=== PATIENT | male | born 1995 | race Caucasian/White ===

== ENCOUNTER 2021-04-14 00:19 | Emergency (ER) | payer MEDICAID, SELFPAY ==
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
[2021-04-14 00:33] VITALS: BP 142/88; PULSE 115; RESP 20; TEMP 37.3; O2SAT 99
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
[2021-04-14 00:44] VITALS: BMI 22.1
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
--- NOTE | 2021-04-14 00:48 | PC.NURSE ---
charissa on phone with @ this time
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
[2021-04-14 01:00] VITALS: BP 133/73; PULSE 95; RESP 19; O2SAT 96
[2021-04-14 01:00] LABS: Basophils # 0.1 K/mm3 (0-0.2); Basophils % 0.5 % (0.1-2.0); Chloride 106 mmol/L (98-107); Eosinophils # 0.1 K/mm3 (0.0-0.4); Eosinophils % 0.5 % (0.1-12.0); Hemoglobin 16.7 g/dL (14.1-18.0); Lymphocytes # 3.1 K/mm3 (0.7-4.5); Mean Corpuscular Hemoglobin 31.1 pg (27.0-31.2); Mean Corpuscular Volume 91.5 fl (80-94); Mean Platelet Volume 8.2 fl (7.4-10.4); Monocytes % 6.4 % (1.7-9.3); Neutrophils # 11.2 K/mm3 (1.8-7.8); Neutrophils % 72.6 % (37.0-80.0); Platelet Count 192 K/mm3 (142-424); Red Blood Count 5.36 M/mm3 (4.60-6.20); Red Cell Distribution Width 13.5 % (11.5-17.5); Sodium 145 mmol/L (136-145); White Blood Count 15.4 K/mm3 (4.8-10.8)
[2021-04-14 01:01] LABS: Potassium 3.7 mmoL/L (3.5-5.1)
[2021-04-14 01:03] LABS: Alanine Aminotransferase 24 U/L (12-78); Albumin/Globulin Ratio 1.6 (1.1-1.8); Alkaline Phosphatase 80 U/L (38-126); Anion Gap 15.7 mEq/L (5-15); Aspartate Amino Transferase 53 U/L (17-59); Bilirubin,Total 0.5 mg/dl (0.2-1.3); Blood Urea Nitrogen 13 mg/dl (9-20); Calcium 9.2 mg/dl (8.4-10.2); Carbon Dioxide 27 mmol/L (22.0-30.0); Creatinine Clearance Estimated 102 mL/min (50-200); Estimated Glomerular Filt Rate 73 ml/min (>60); GFR (African American) 88 ML/MIN (>60); Globulin 3.1 g/dL (1.3-3.2); Glucose 114 mg/dl (74-100); MANUAL DIFFERENTIAL MANUAL DIFFERENTIAL (MANUAL DIFF); Total Protein,Serum 8.1 g/dl (6.3-8.2)
[2021-04-14 01:04] LABS: Ethyl Alcohol 194 mg/dl (0-10)
--- NOTE | 2021-04-14 01:05 | PC.NURSE ---
Pt's mother updated and at bedside.
--- NOTE | 2021-04-14 01:15 | PC.NURSE ---
pt up to CT
--- NOTE | 2021-04-14 02:21 | PC.NURSE ---
pt returned from ct
[2021-04-14 02:30] VITALS: BP 155/84; PULSE 83; PULSE 84; RESP 18; RESP 20; O2SAT 100; O2SAT 99
[2021-04-14 03:00] VITALS: BP 151/91; PULSE 79; RESP 15; O2SAT 100
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
[2021-04-14 04:20] LABS: Microscopic, Urine URINE MICROSCOPIC (MICROSCOPIC)
[2021-04-14 04:41] LABS: Amphetamine/Metha Screen,Urine Negative ng/ml (<1000); Benzodiazepines Screen,Urine Negative ng/ml (<200)
[2021-04-14 04:42] LABS: Barbiturates Screen,Urine Negative ng/ml (<200); Cannabinoid Screen,Urine Negative ng/ml (<50)
[2021-04-14 04:43] LABS: Cocaine Screen,Urine Negative ng/ml (<300)
[2021-04-14 04:44] LABS: Methadone Screen,Urine Negative ng/ml (<300); Opiate Screen,Urine Negative ng/ml (<300)
[2021-04-14 04:45] LABS: Phencyclidine Screen,Urine Negative ng/ml (<25)
[2021-04-14 04:48] VITALS: BP 128/73; PULSE 82; RESP 20; TEMP 36.6; O2SAT 99
[2021-04-14 05:19] LABS: Appearance,Urine CLEAR (Clear); Bilirubin,Urine Negative (Negative); Blood, Urine Negative (Negative); Color,Urine YELLOW (Yellow); Glucose,Urine (UA) Negative (Negative); Ketones,Urine Negative (Negative); Leukocyte Esterase,Urine Negative (Negative); Nitrate,Urine Negative (Negative); Protein,Urine Negative (Negative); Specific Gravity, Urine <= 1.005 (1.005-1.030)
[2021-04-14 05:27] LABS: Eosinophils % 2 % (0-3); Lymphocytes % 20 % (10-50); Monocytes % 4 % (2-9); Neutrophils % 74 % (42-76); Total Cells Counted 100
[2021-04-14 05:29] LABS: Hypochromasia 1+; Platelet Estimate Normal
[2021-04-20 11:12] LABS: Acetone <0.010 g/dL (0.000-0.010); Butalbital <1 ug/mL (1-10); Chlordiazepoxide <0.1 ug/mL (0.1-0.9); Diazepam <0.1 ug/mL (0.1-0.9); Ethanol 0.144 g/dL (0.000-0.010); Isopropanol <0.010 g/dL (0.000-0.010); Pentobarbital <1 ug/mL (1-5)
== END 2021-04-14 05:27 | disposition home or self-care (01) ==
PROVIDERS: Emergency Provider Emergency Medicine; PCP Family Medicine
DX: S32.692A Other specified fracture of left ischium, initial encounter for closed fracture (principal); S06.0X1A Concussion with loss of consciousness of 30 minutes or less, initial encounter; S01.111A Laceration without foreign body of right eyelid and periocular area, initial encounter; V49.3XXA Car occupant (driver) (passenger) injured in unspecified nontraffic accident, initial encounter; Y92.410 Unspecified street and highway as the place of occurrence of the external cause
CPT/HCPCS: 70450; 70496; 70498; 71045; 71275; 72125; 72128; 72131; 72170; 73700; 74177; 80053; 80305; 80306; 81001; 85007; 85025; 96365; 96366; 96375; 99283; Q9967